=== PATIENT | female | born 1980 | race Hispanic/Latino ===

== ENCOUNTER → 2024-08-19 | Outpatient (CLI) | payer BC ==
[2024-08-19 14:38] LABS: BODY FLUID RBC 14631 /cu. mm.; BODY FLUID WBC 1162 /cu. mm.
[2024-08-19 15:57] LABS: BF LYMPHOCYTE 6 %; BF TOTAL CELLS COUNTED 100
[2024-08-19 15:59] LABS: APPEARANCE BODY FLUID TURBID (CLEAR); COLOR,BODY FLUID YELLOW (LT YELLOW); SPECIMENTYPE,BODY FLUID SYNOVIAL; TOTAL VOLUME,BODY FLUID 32 mL
[2024-08-20 04:05] LABS: CRYSTALS, SYNOVIAL FLUID None Seen
== END | disposition home or self-care (01) ==
LOC: LAB 12:46
PROVIDERS: ATTEND Nurse Practitioner
DX: M25.462 Effusion, left knee (principal)
CPT/HCPCS: 87071; 87076; 87205; 89051; 89060